=== PATIENT | female | born 1955 | race Caucasian/White ===

== ENCOUNTER 2024-09-13 08:01 | Emergency (ER) | payer OTHER, MEDICARE, BC ==
[2024-09-13 08:11] VITALS: BP 155/79; PULSE 59
== END 2024-09-13 11:05 | disposition home or self-care (01) ==
LOC: MW.ED 08:01 → MERGE 08:01 → MW.ED 11:05
DX: R07.81 Pleurodynia (principal); E78.00 Pure hypercholesterolemia, unspecified; K21.9 Gastro-esophageal reflux disease without esophagitis; E03.9 Hypothyroidism, unspecified; Z79.890 Hormone replacement therapy; Z79.899 Other long term (current) drug therapy
CPT/HCPCS: 71046; 71046-26; 99283